=== PATIENT | male | born 1955 | race Caucasian/White ===

== ENCOUNTER 2018-04-13 13:30 | Inpatient (IN) ==
--- NOTE | 2018-04-13 14:28 | Emergency Department Note ---
Disposition Clinical Impression: Upper GI bleed Disposition: Admitted As Inpatient Condition: Good Referrals: Cameron Sparrow MD [Primary Care Provider] - Forms: ED Satisfaction Letter, Work/School Release Time of Disposition: 16:12 General Adult HPI - General Chief complaint: ED Abdominal Pain Stated complaint: ABD Pain Time Seen by Provider: 04/13/18 13:45 Source: patient, family Limitations: no limitations - History of Present Illness HPI Narrative: This is a 62-year-old male who comes to the emergency department from his family doctor's office with concern for GI bleed. In addition, he has abdominal pain. He states that he has had black stools for about the last 8 weeks. He has epigastric pain that has gradually gotten worse over the last 8-10 weeks. He has been taking apixaban for atrial fibrillation for approximately 2 years. Pain Scale: 3 - Related Data Home Medications Medication Instructions Recorded Confirmed ALPRAZolam [Xanax 1 MG Tablet] 1 mg PO BID 08/04/15 08/04/15 Atorvastatin [Lipitor] 40 mg PO HS 08/04/15 08/04/15 Clopidogrel [Plavix] 75 mg PO DAILY 08/04/15 08/04/15 Dicyclomine [Bentyl] 20 mg PO QID 08/04/15 08/04/15 Esomeprazole Magnesium [Nexium] 40 mg PO DAILY 08/04/15 08/04/15 FLUoxetine HCl [Prozac] 20 mg PO DAILY 08/04/15 08/04/15 Furosemide [Lasix] 40 mg PO BID 08/04/15 08/04/15 Glimepiride [Amaryl] 4 mg PO BID 08/04/15 08/04/15 Insulin Degludec [Tresiba 30 unit SQ DAILY 08/04/15 08/04/15 Flextouch U-100] Lisinopril [Zestril] 2.5 mg PO DAILY 08/04/15 08/04/15 Metoprolol [Lopressor] 100 mg PO BID 08/04/15 08/04/15 Rivaroxaban [Xarelto] 20 mg PO DAILY 08/04/15 08/04/15 dilTIAZem HCl [Cardizem] 60 mg PO TID 08/04/15 08/04/15 metFORMIN [Glucophage] 500 mg PO BID 08/04/15 08/04/15 Allergies Allergy/AdvReac Type Severity Reaction Status Date / Time promethazine [From Phenergan] Allergy Itching Verified 08/04/15 15:10 All systems ED: reviewed and negative except as stated. Gastrointestinal: Reports: abdominal pain, melena Past Medical History - Past Medical History Medical history: Reports: asthma, atrial fibrillation, cirrhosis, CHF, COPD, coronary artery disease, CVA, diabetes, hyperlipidemia, hypertension, liver disease, myocardial infarction, renal disease, sudden cardiac , valvular heart disease Surgical history: Reports: carotid endarterectomy, cholecystectomy, coronary bypass (CABG) Psychiatric history: Reports: no psych history - Social History Smoking Status: Former smoker Smokeless Tobacco Status: No Alcohol use: Reports: none Drug use: Reports: none Physical Exam - General Limitations: no limitations General appearance: alert, in distress (In minimal distress), obese - Head Head exam: atraumatic, normocephalic, normal inspection - Eye Eye exam: Present: normal appearance, PERRL, EOMI. Absent: scleral icterus - Chest Chest inspection: Present: normal inspection, symmetric chest wall rise - Respiratory Respiratory exam: Present: normal lung sounds bilaterally - Cardiovascular Cardiovascular exam: Present: regular rate, irregular rhythm, systolic murmur - Abdominal Exam Abdominal exam: Present: soft, tenderness Abdominal tenderness: Present: RLQ, epigastrium (And periumbilical) - Rectal Exam Manager Material present during exam: Yes Rectal exam: Present: normal inspection, normal rectal tone, heme (+) stool, black stool. Absent: hemorrhoids, tenderness - Extremities Exam Extremities exam: Present: normal inspection, pedal edema (There is 2+ bilateral pedal edema to the mid calves) - Neurological Exam Neurological exam: Present: alert, oriented X3 - Psychiatric Psychiatric exam: Present: normal affect, normal mood - Skin Skin exam: Present: warm, dry, intact, normal color Course Course Narrative: This is a 62-year-old male with evaluation concerning for melena, likely secondary to anticoagulation with Apixaban Vital Signs Temperature 97.9 F 04/13/18 13:32 Pulse Rate 64 04/13/18 13:32 Respiratory Rate 22 04/13/18 13:32 Blood Pressure 113/65 04/13/18 13:32 O2 Sat by Pulse Oximetry 99 04/13/18 13:32 Temperature 97.9 F 04/13/18 14:13 Pulse Rate 63 04/13/18 16:08 Respiratory Rate 14 04/13/18 16:08 Blood Pressure 113/59 04/13/18 16:08 O2 Sat by Pulse Oximetry 99 04/13/18 16:08 Oxygen Delivery Oxygen Delivery Room Air Medical Decision Making - MDM Narrative Medical decision making narrative: This is a 62-year-old male with what appears to be upper GI bleeding likely secondary to anticoagulation. I discussed his case with the on-call hospitalist, Who accepted him for admission - Lab Data Lab results reviewed: Yes I reviewed the patient's lab results. Lab results narrative: CBC shows anemia at 8.7 and 26.5 BMP shows hypokalemia at 3.2 and BUN elevated at 81 with creatinine of 2.44 Hemoccult was positive Result diagrams: 04/13/18 14:00 04/13/18 14:00 Lab Results 04/13/18 04/13/18 04/13/18 Range/Units 14:00 14:00 14:00 WBC 7.8 (4.3-11.1) K/mcL RBC 2.66 L (4.19-5.50) M/mcL Hgb 8.7 L (12.9-16.9) g/dL Hct 26.5 L (37.5-50.1) % MCV 99.6 (83.0-100.0) fL MCH 32.7 (28.0-33.3) pg MCHC 32.8 (31.6-35.5) g/dL RDW 15.9 H (11.5-14.5) % Plt Count 148 (140-400) K/mcL MPV 12.2 (9.4-12.4) fL Immature Gran % 0.8 (0-4) % Seg Neutrophils % 78.4 % Lymphocytes % 7.3 % Monocytes % 9.5 % Eosinophils % 3.5 % Basophils % 0.5 % Neutrophils # 6.1 (1.6-8.9) K/mcL Lymphocytes # 0.6 (0.6-4.6) K/mcL Monocytes # 0.7 (0.0-1.3) K/mcL Eosinophils # 0.3 (0.0-0.6) K/mcL Basophils # 0.0 (0.0-0.2) K/mcL Sodium 138 (136-145) mEq/L Potassium 3.2 L (3.5-5.1) mEq/L Chloride 97 L (98-107) mEq/L Carbon Dioxide 31 H (23-29) mEq/L BUN 81 H (8-23) mg/dL Creatinine 2.44 H (0.70-1.30) mg/dL Est GFR ( Amer) 33 L (> 60) Est GFR (Non-Af Amer) 27 L (> 60) BUN/Creatinine Ratio 33 H (6-26) Glucose 103 (70-105) mg/dL Calculated Osmolality 311 H (280-300) Calcium 8.3 L (8.6-10.3) mg/dL Stool Occult Bld Scrn (Negative) Blood Type A POSITIVE Antibody Screen NEGATIVE 04/13/18 Range/Units 15:20 WBC (4.3-11.1) K/mcL RBC (4.19-5.50) M/mcL Hgb (12.9-16.9) g/dL Hct (37.5-50.1) % MCV (83.0-100.0) fL MCH (28.0-33.3) pg MCHC (31.6-35.5) g/dL RDW (11.5-14.5) % Plt Count (140-400) K/mcL MPV (9.4-12.4) fL Immature Gran % (0-4) % Seg Neutrophils % % Lymphocytes % % Monocytes % % Eosinophils % % Basophils % % Neutrophils # (1.6-8.9) K/mcL Lymphocytes # (0.6-4.6) K/mcL Monocytes # (0.0-1.3) K/mcL Eosinophils # (0.0-0.6) K/mcL Basophils # (0.0-0.2) K/mcL Sodium (136-145) mEq/L Potassium (3.5-5.1) mEq/L Chloride (98-107) mEq/L Carbon Dioxide (23-29) mEq/L BUN (8-23) mg/dL Creatinine (0.70-1.30) mg/dL Est GFR ( Amer) (> 60) Est GFR (Non-Af Amer) (> 60) BUN/Creatinine Ratio (6-26) Glucose (70-105) mg/dL Calculated Osmolality (280-300) Calcium (8.6-10.3) mg/dL Stool Occult Bld Scrn Positive A (Negative) Blood Type Antibody Screen - Radiology Data Radiology results reviewed: Yes I reviewed the patient's radiology results. CT/pelvis showed no acute process Critical Care Time Critical Care Time: No
[2018-04-13 14:58] LABS: Basophils % 0.5 %; Eosinophils # 0.3 K/mcL (0.0-0.6); Eosinophils % 3.5 %; Hematocrit 26.5 % (37.5-50.1); Hemoglobin 8.7 g/dL (12.9-16.9); Immature Granulocytes % 0.8 % (0-4); Lymphocytes # 0.6 K/mcL (0.6-4.6); Lymphocytes % 7.3 %; Mean Corpuscular HGB Conc 32.8 g/dL (31.6-35.5); Mean Corpuscular Hemoglobin 32.7 pg (28.0-33.3); Mean Corpuscular Volume 99.6 fL (83.0-100.0); Mean Platelet Volume 12.2 fL (9.4-12.4); Monocytes # 0.7 K/mcL (0.0-1.3); Monocytes % 9.5 %; Neutrophils # 6.1 K/mcL (1.6-8.9); Platelet Count 148 K/mcL (140-400); Red Blood Count 2.66 M/mcL (4.19-5.50); Red Cell Distribution Width 15.9 % (11.5-14.5); Segmented Neutrophils % 78.4 %
[2018-04-13 15:19] LABS: Calcium 8.3 mg/dL (8.6-10.3); Potassium 3.2 mEq/L (3.5-5.1)
[2018-04-13] MEDS ORDERED: Ondansetron 4 MG/2 ML VIAL IVP PRN (18:11)
[2018-04-13] MEDS ORDERED: Naloxone 0.4 MG/ML INJ IVP PRN (18:11)
[2018-04-13] MEDS ORDERED: OXYCODONE Oral CONC 10 MG/0.5 ML ORAL.SYG SL PRN (18:11)
--- NOTE | 2018-04-13 18:30 | Internal Med History&Physical ---
Date of Encounter: 04/13/18 Time of Encounter: 18:22 Internal Medicine - H&P: HPI History of present illness: Mr. Bell is a 60 year old male with past medical history of severe mitral regurgitation, liver cirrhosis, CHF, CVA, COPD, CAD, IDDM 2, hypertension, MA status post CABG and stent placement 6, atrial fibrillation/ atrial flutter on Xarelto. He presented to ED per recommendation of his doctor's office. Patient has been having 8 weeks of dark coal-looking stools, but now having epigastric abdominal pain that is progressively worsening. He was told by primary care that in office his hemoglobin was 9.0. Today in ED, hemoglobin was 8.7 and BP and HR are within normal limits. He denies chest pain, shortness of breath (above his baseline), N/V. Past Med Surg Social Fam HX - Past Medical History Medical history: asthma, atrial fibrillation, cirrhosis, CHF, COPD, coronary artery disease, CVA, diabetes, hyperlipidemia, hypertension, liver disease, myocardial infarction, renal disease, sudden cardiac , valvular heart disease Additional medical history: ANEMIA Psychiatric history: no psych history - Past Surgical History Surgical History: carotid endarterectomy, cholecystectomy, coronary bypass (CABG) - Social History Smoking Status: Former smoker Smokeless Tobacco Status: No Alcohol use: none Drug use: none - Family History Mother Living Status: Father Living Status: Internal Medicine - H&P: Meds ALPRAZolam [Xanax 1 MG Tablet] 1 mg PO BID 08/04/15 [History] Atorvastatin [Lipitor] 40 mg PO HS 08/04/15 [History] Clopidogrel [Plavix] 75 mg PO DAILY 08/04/15 [History] Dicyclomine [Bentyl] 20 mg PO QID 08/04/15 [History] Esomeprazole Magnesium [Nexium] 40 mg PO DAILY 08/04/15 [History] FLUoxetine HCl [Prozac] 20 mg PO DAILY 08/04/15 [History] Furosemide [Lasix] 40 mg PO BID 08/04/15 [History] Glimepiride [Amaryl] 4 mg PO BID 08/04/15 [History] Insulin Degludec [Tresiba Flextouch U-100] 30 unit SQ DAILY 08/04/15 [History] Lisinopril [Zestril] 2.5 mg PO DAILY 08/04/15 [History] Metoprolol [Lopressor] 100 mg PO BID 08/04/15 [History] Rivaroxaban [Xarelto] 20 mg PO DAILY 08/04/15 [History] dilTIAZem HCl [Cardizem] 60 mg PO TID 08/04/15 [History] metFORMIN [Glucophage] 500 mg PO BID 08/04/15 [History] Allergy/AdvReac Type Severity Reaction Status Date / Time promethazine [From Phenergan] Allergy Itching Verified 08/04/15 15:10 All Systems PM: A 10-system review of systems was performed and is negative for pertinent findings except as documented above in the HPI. - Constitutional Vitals: Temp Pulse Resp BP Pulse Ox 97.9 F 63 14 113/59 99 04/13/18 14:13 04/13/18 16:08 04/13/18 16:08 04/13/18 16:08 04/13/18 16:08 General appearance: Present: A&O X 3 Exam: . - Head Head exam: Present: atraumatic, normocephalic - Eye Eye exam: Present: PERRL, conjuntiva pink, sclera anicteric Pupils: Present: PERRL - Neck Neck exam general surgery: Present: supple, trachea midline. Absent: lymphadenopathy - Respiratory Respiratory exam: Present: CTAB. Absent: accessory muscle use, rales, rhonchi, wheezes - Cardiovascular Cardiovascular exam: Present: RRR, +S1, +S2. Absent: diastolic murmur, gallop, rubs, systolic murmur - GI/Abdominal GI/Abdominal exam: Present: normal bowel sounds, soft, tenderness, no peritoneal signs. Absent: distended - Extremities Exam Extremities exam: Present: pedal edema (Patient states this is baseline (1+ bipedal)), warm, radial pulses palpable and symmetrical. Absent: calf tenderness, cyanotic - Neurological Exam Neurological exam: Present: CN II-XII intact, oriented X3, no focal deficits. Absent: pronater drift, facial droop, speech deficit - Skin Skin exam: Present: dry, intact Internal Med - H&P Results - Labs CBC & Chem 7: 04/13/18 18:46 04/13/18 14:00 Labs: Short CBC 04/13/18 Range/Units 14:00 WBC 7.8 (4.3-11.1) K/mcL Hgb 8.7 L (12.9-16.9) g/dL Hct 26.5 L (37.5-50.1) % Plt Count 148 (140-400) K/mcL Neutrophils # 6.1 (1.6-8.9) K/mcL BMP 04/13/18 14:00 Sodium 138 Potassium 3.2 L Chloride 97 L Carbon Dioxide 31 H BUN 81 H Creatinine 2.44 H Glucose 103 Calcium 8.3 L - Impressions ITS Impressions Abdomen/Pelvis CT 04/13/18 13:57 IMPRESSION: No acute process within the abdomen or pelvis. Normal appendix. Cirrhosis with associated splenomegaly and small amount of ascites. Cholecystectomy. D/ / 04/13/2018 15:24:42 Ray Maciel MD / rowan Interpreting Provider: Ray Maciel MD - Assessment and plan (1) Upper GI bleed Current Visit: Yes Status: Acute Assessment and plan: Patient had 8 week history of dark black stools and hemoglobin of 9.0 in doctor office yesterday and today in the ED hemoglobin was 8.7. She had EGD in November 2017 showing grade I varicies and mild portal hypertensive gastropathy. Currently patient has symptoms that are chronic, duration of weeks. Consult Gastroenterology, possible EGD Start Protonix IV BID Close monitoring of vitals. Currently hemodynamically stable. Monitor H&H, recheck in 6 horus from first draw. Hold Xarelto Hold Plavix. Clear liquid idet now and NPO at midnight Tranfsuse if H&H < 8.0 in this cardiac patient. (2) Liver cirrhosis secondary to [place] Current Visit: Yes Status: Acute (3) Hypertension Current Visit: Yes Status: Acute Assessment and plan: Resume home medications once medication reconciliation is complete. Qualifiers: Hypertension type: essential hypertension Qualified Code(s): I10 - Essential (primary) hypertension (4) Chronic kidney disease Current Visit: Yes Status: Acute Assessment and plan: Renal function at baseline. Qualifiers: Chronic kidney disease stage: stage 3 (moderate) Qualified Code(s): N18.3 - Chronic kidney disease, stage 3 (moderate) (5) CAD (coronary artery disease) Current Visit: No Status: Chronic Assessment and plan: Resume home medications once medication reconciliation is complete. But hold Plavix Qualifiers: Coronary Disease-Associated Artery/Lesion type: bypass graft [place] vs. transplanted heart: [place] heart Associated angina: without angina Qualified Code(s): I25.810 - Atherosclerosis of coronary artery bypass graft(s) without angina pectoris (6) COPD (chronic obstructive pulmonary disease) Current Visit: No Status: Chronic Assessment and plan: Not in acute exacerbation. Qualifiers: COPD type: unspecified COPD Qualified Code(s): J44.9 - Chronic obstructive pulmonary disease, unspecified (7) Type 2 diabetes mellitus Current Visit: No Status: Chronic Assessment and plan: Sliding scale insulin Diabetic diet when able. Qualifiers: Diabetes mellitus supervisor intermediates insulin use: with supervisor intermediates use Diabetes mellitus complication status: with hyperglycemia Qualified Code(s): E11.65 - Type 2 diabetes mellitus with hyperglycemia; Z79.4 - supervisor intermediates (current) use of insulin (8) Atrial fib/flutter, transient Current Visit: Yes Status: Acute Assessment and plan: Takes Cardizem and metoprolol at home but medications are not verified. Hold Xarelto (9) DVT prophylaxis Current Visit: No Status: Acute Assessment and plan: EPCD - Time Spent With Patient Total time spent is greater than 50% in coordination of care (as documented) at patient's floor/unit and/or counseling patient:
[2018-04-13 19:02] LABS: Hematocrit 24.3 % (37.5-50.1); Hemoglobin 8.2 g/dL (12.9-16.9)
[2018-04-13] MEDS ORDERED: Ipratropium/Albuterol Neb 3 ML IH PRN (19:11)
[2018-04-13] MEDS ORDERED: *HR* Metoprolol 5 MG/5 ML VIAL IVP PRN (19:11)
[2018-04-13] MEDS: Pantoprazole 40 MG VIAL IVP SCH (20:47)
[2018-04-13] MEDS: Insulin LISPRO 300 UNITS/3 ML VIAL SQ SCH (20:50)
[2018-04-14] MEDS ORDERED: *HR* Dextrose 50 % in Water (Syg) 50 ML SYRINGE IVP PRN (00:04)
[2018-04-14] MEDS ORDERED: D5% in Water 1,000 ML IVC PRN (00:04)
[2018-04-14] MEDS ORDERED: Dextrose Gel 15 GM/37.5 ML TUBE PO PRN ×2 (00:04)
[2018-04-14 01:37] LABS: Hematocrit 25.5 % (37.5-50.1); Hemoglobin 8.4 g/dL (12.9-16.9)
[2018-04-14 01:43] LABS: Basophils # 0.1 K/mcL (0.0-0.2); Basophils % 0.7 %; Eosinophils # 0.3 K/mcL (0.0-0.6); Eosinophils % 3.8 %; Hematocrit 25.4 % (37.5-50.1); Hemoglobin 8.4 g/dL (12.9-16.9); Immature Granulocytes % 0.4 % (0-4); Lymphocytes # 0.4 K/mcL (0.6-4.6); Lymphocytes % 6.4 %; Mean Corpuscular HGB Conc 33.1 g/dL (31.6-35.5); Mean Corpuscular Hemoglobin 32.7 pg (28.0-33.3); Mean Corpuscular Volume 98.8 fL (83.0-100.0); Mean Platelet Volume 12.1 fL (9.4-12.4); Monocytes # 0.7 K/mcL (0.0-1.3); Monocytes % 10.3 %; Neutrophils # 5.4 K/mcL (1.6-8.9); Platelet Count 141 K/mcL (140-400); Red Blood Count 2.57 M/mcL (4.19-5.50); Red Cell Distribution Width 15.9 % (11.5-14.5); Segmented Neutrophils % 78.4 %
[2018-04-14 01:58] LABS: Calcium 8.2 mg/dL (8.6-10.3); Potassium 3.5 mEq/L (3.5-5.1)
[2018-04-14] MEDS: Pantoprazole 40 MG VIAL IVP SCH ×2 (05:52→19:02)
[2018-04-14] MEDS: ALPRAZolam 1 MG TABLET PO SCH ×2 (06:22→20:30)
[2018-04-14] MEDS ORDERED: Furosemide 40 MG TABLET PO SCH (09:00)
[2018-04-14] MEDS: Cyanocobalamin (B-12) 1,000 MCG TABLET PO SCH (09:19)
[2018-04-14] MEDS: FLUoxetine 20 MG CAPSULE PO SCH (09:19)
[2018-04-14] MEDS: Insulin LISPRO 300 UNITS/3 ML VIAL SQ SCH ×4 (09:22→20:22)
[2018-04-14 10:49] LABS: INR 1.8; Prothrombin Time 20.5 Seconds (9.4-12.1)
[2018-04-14 11:00] LABS: Albumin 2.7 g/dL (3.5-5.7); Albumin/Globulin Ratio 1.1 (1.1-2.2); Bilirubin,Direct 0.6 mg/dL (0.0-0.2); Bilirubin,Indirect 0.9 mg/dL (0.0-1.2); Bilirubin,Total 1.5 mg/dL (0.3-1.0); Globulin 2.5 g/dL (2.4-3.5); Total Protein 5.2 g/dL (6.4-8.9)
--- NOTE | 2018-04-14 16:02 | Internal Med Progress Note ---
Hospitalist Progress Note - Encounter Date of Encounter: 04/14/18 Time of Encounter: 17:18 - Subjective Interval History: No acute events overnight. Patient still having complaints of abdominal pain but not as severe as a few days ago. Denies chest pain, SOB, n/v, dizziness. - Exam Vitals: Temp Pulse Resp BP Pulse Ox 99.2 F 68 17 94/52 96 04/14/18 11:15 04/14/18 11:15 04/14/18 11:15 04/14/18 11:15 04/14/18 11:15 Exam: Gen: Obese, NAD, AAO x3 CVS: RRR Lungs; CTAB Abd: soft, mild TTP epigastric region, normal bowel sounds Ext: 2+ bipedal pitting edema. . - Assessment and Plan (1) Upper GI bleed Current Visit: Yes Status: Acute Assessment and Plan: Patient had 8 week history of dark black stools and hemoglobin of 9.0 in doctor office yesterday and today in the ED hemoglobin was 8.7. She had EGD in November 2017 showing grade I varicies and mild portal hypertensive gastropathy. Currently patient has symptoms that are chronic, duration of weeks. GI consulted, recommendations appreciated Continue Protonix IV BID Close monitoring of vitals. Currently hemodynamically stable. Monitor H&H, recheck in 6 hours from first draw. Hold Xarelto Hold Plavix. NPO for now until GI eval Tranfsuse if H&H < 8.0 in this cardiac patient. (2) Liver cirrhosis secondary to [place] Current Visit: Yes Status: Acute (3) Hypertension Current Visit: Yes Status: Acute Assessment and Plan: Takes metoprolol at home. However, BP now lower normal limits so will hold. (4) Chronic kidney disease Current Visit: Yes Status: Acute Assessment and Plan: Renal function at baseline. (5) CAD (coronary artery disease) Current Visit: No Status: Chronic Assessment and Plan: Resume home medications But hold Plavix (6) COPD (chronic obstructive pulmonary disease) Current Visit: No Status: Chronic Assessment and Plan: Not in acute exacerbation. (7) Type 2 diabetes mellitus Current Visit: No Status: Chronic Assessment and Plan: Sliding scale insulin Diabetic diet when able. (8) Atrial fib/flutter, transient Current Visit: Yes Status: Acute Assessment and Plan: Takes Cardizem and metoprolol at home but currently BP is low so hold metoprolol and Hold Xarelto due to GIB (9) DVT prophylaxis Current Visit: No Status: Acute Assessment and Plan: EPCD - Time Spent with Patient Total time spent is greater than 50% in coordination of care (as documented) at patient's floor/unit and/or counseling patient: Internal Medicine: Result - Labs CBC & Chem 7: 04/14/18 00:12 04/14/18 00:12 Labs: Short CBC 04/13/18 04/14/18 04/14/18 Range/Units 18:46 00:12 00:12 WBC 6.9 (4.3-11.1) K/mcL Hgb 8.2 L 8.4 L 8.4 L (12.9-16.9) g/dL Hct 24.3 L 25.5 L 25.4 L (37.5-50.1) % Plt Count 141 (140-400) K/mcL Neutrophils # 5.4 (1.6-8.9) K/mcL BMP 04/14/18 00:12 Sodium 137 Potassium 3.5 Chloride 97 L Carbon Dioxide 31 H BUN 78 H Creatinine 2.34 H Glucose 80 Calcium 8.2 L Liver Function 04/14/18 Range/Units 10:00 Total Bilirubin 1.5 H (0.3-1.0) mg/dL Direct Bilirubin 0.6 H (0.0-0.2) mg/dL AST 142 H (13-39) Units/L ALT 91 H (7-52) Units/L Alkaline Phosphatase 106 H (34-104) Units/L Albumin 2.7 L (3.5-5.7) g/dL - ABG Interpretation ABG results: PT/INR, D-dimer PT 20.5 Seconds (9.4-12.1) H 04/14/18 10:00 Consult Discharge Plan - Plan Referrals: Cameron Sparrow MD [Primary Care Provider] - (3) Hypertension Qualifiers: Hypertension type: essential hypertension Qualified Code(s): I10 - Essential (primary) hypertension (4) Chronic kidney disease Qualifiers: Chronic kidney disease stage: stage 3 (moderate) Qualified Code(s): N18.3 - Chronic kidney disease, stage 3 (moderate) (5) CAD (coronary artery disease) Qualifiers: Coronary Disease-Associated Artery/Lesion type: bypass graft [place] vs. transplanted heart: [place] heart Associated angina: without angina Qualified Code(s): I25.810 - Atherosclerosis of coronary artery bypass graft(s) without angina pectoris (6) COPD (chronic obstructive pulmonary disease) Qualifiers: COPD type: unspecified COPD Qualified Code(s): J44.9 - Chronic obstructive pulmonary disease, unspecified (7) Type 2 diabetes mellitus Qualifiers: Diabetes mellitus nursing home insulin use: with nursing home use Diabetes mellitus complication status: with hyperglycemia Qualified Code(s): E11.65 - Type 2 diabetes mellitus with hyperglycemia; Z79.4 - jail (current) use of insulin
--- NOTE | 2018-04-14 16:52 | Gastroenterology Consult Note ---
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 Continue Lasix. Consider Aldactone. AFP 1 on 08/05/2015. RUQ US 09/22/2017 with cirrhosis, no lesions. Check AFP and liver US to rule out HCC. Complete EGD for variceal screening. Lifestyle Changes: 1. Total abstinence from alcohol including social drinking. 2. No smoking. 3. Gradual loss of weight. 4. Drink at least 3 cups of coffee due to its antioxidant effects in the liver, it reduces risk of HCC and advance fibrosis. 5. If needed, use less than 2 g/day of Tylenol (in divided doses). 6. Vaccination for Hep A, B, Pneumococcus if not already received and yearly influenza vaccination by PCP. 7. Avoid NSAIDS as can cause kidney damage. 8. Avoid benzodiazepines and other sedatives such as anti-histamines, narcotics etc. as can cause encephalopathy or confusion. 9. Take a late carbohydrate meal supplement as it reduces glucose production from protein breakdown and thus improves nutrition. 10. In cirrhosis, statins are safe to use and also improve portal hypertension and decrease risk of HCC. 11. Screening: Hepatocellular cancer screening: US of liver and AFP every 6 months (2) Upper GI bleed Current Visit: Yes Status: Acute Assessment and plan: Complete EGD today to r/o esophagitis, gastritis, duodenitis, PUD, MW tear, or AVM. (3) Anemia Current Visit: Yes Status: Acute Assessment and plan: On admission, Hgb 8.7 and this AM Hgb 8.4. Continue to monitor CBC and transfuse PRBC as needed. Plan for EGD. Qualifiers: Anemia type: unspecified type Qualified Code(s): D64.9 - Anemia, unspecified - Time Spent With Patient Total time spent is greater than 50% in coordination of care (as documented) at patient's floor/unit and/or counseling patient: GI History of Present Illness - Data of Consult Patient: new to practice Consult date: 04/14/18 Requesting Physician: Robyn Sauceda MD - Consult Narrative Reason for consult: Upper GI bleed History of present illness: Mr. Bell is a 62 year old male with PMHx of Afib, cirrhosis, CHF, COPD, CAD, CVA, DM, HLD, HTN, MD s/p CABG and stent placement x 6. He presented to the ED with complaints of 8 weeks of dark coal-looking stools and epigastric pain. On admission, Hgb 8.7 and this AM Hgb 8.4. Fecal occult blood test was positive. We were consulted to evalute for upper GI bleed. Procedures: None NSAIDs: None Anticoagulation: Plavix, Eliquis Past Med Surg Social Fam HX - Past Medical History Medical history: asthma, atrial fibrillation, cirrhosis, CHF, COPD, coronary artery disease, CVA, diabetes, hyperlipidemia, hypertension, liver disease, myocardial infarction, renal disease, sudden cardiac , valvular heart disease Additional medical history: ANEMIA Psychiatric history: anxiety - Past Surgical History Surgical History: carotid endarterectomy, cholecystectomy, coronary bypass (CABG) - Social History Smoking Status: Former smoker Smokeless Tobacco Status: No Alcohol use: none Drug use: none - Family History Mother Living Status: Father Living Status: - Gastrointestinal Gastrointestinal: Present: as per HPI - Constitutional Constitutional: as per HPI - EENT Eyes: as per HPI Ears: Present: as per HPI Nose, mouth and throat: Present: as per HPI - Cardiovascular Cardiovascular ROS: Present: as per HPI - Respiratory Respiratory IM: Present: as per HPI - Genitourinary Genitourinary: Absent: change in color, Urinary frequency - Neurological ROS Neurological GI: Present: as per HPI - Hematologic/Lymphatic Hematologic/Lymphatic pediatric: Present: as per HPI - Musculoskeletal Musculoskeletal ROS GI: Present: as per HPI - Integumentary Integumentary GI: Present: as per HPI - Psychiatric ROS Psychiatric GI: Present: as per HPI - Endocrine Endocrine IM: Present: as per HPI - Constitutional Vitals: Temp Pulse Resp BP Pulse Ox 99.2 F 68 17 94/52 96 04/14/18 11:15 04/14/18 11:15 04/14/18 11:15 04/14/18 11:15 04/14/18 11:15 General appearance: Present: cooperative, A&O X 3, no acute distress, answers questions appropriately - Head Head exam: Present: atraumatic, normocephalic - Eye Eye exam: Present: normal appearance, sclera anicteric - ENT ENT exam: Present: mucous membranes dry - Neck Neck exam general surgery: Present: normal inspection, trachea midline - Respiratory Respiratory exam: Present: decreased breath sounds, CTAB. Absent: rales, rhonchi - Cardiovascular Cardiovascular exam: Present: RRR, +S1, +S2 - GI/Abdominal GI/Abdominal exam: Present: soft, tenderness (epigastric), no peritoneal signs. Absent: distended, firm, guarding - Rectal Rectal exam: Present: deferred - Extremities Exam Extremities exam: Present: warm - Neurological Exam Neurological exam: Present: no focal deficits - Psychiatric Psychiatric exam: Present: normal affect, normal mood - Skin Skin exam: Present: dry, intact, normal color, warm Results - Labs CBC & Chem 7: 04/14/18 00:12 04/14/18 00:12 Labs: Last Result Calcium 8.2 mg/dL (8.6-10.3) L 04/14/18 00:12 Entire Visit Hgb 8.4 g/dL (12.9-16.9) L 04/14/18 00:12 Hct 25.4 % (37.5-50.1) L 04/14/18 00:12 PT 20.5 Seconds (9.4-12.1) H 04/14/18 10:00 Total Bilirubin 1.5 mg/dL (0.3-1.0) H 04/14/18 10:00 AST 142 Units/L (13-39) H 04/14/18 10:00 ALT 91 Units/L (7-52) H 04/14/18 10:00 - ABG ABG results: PT/INR, D-dimer PT 20.5 Seconds (9.4-12.1) H 04/14/18 10:00 - Impressions Impressions Liver Ultrasound 04/14/18 15:00 IMPRESSION: 1. Hepatic morphologic features typical of cirrhosis with no discrete mass lesion evident. 2. Mild hepatomegaly. 3. Small volume ascites. D/ / Brenton Hernández / Brenton Hernández Interpreting Provider: Brenton Hernández Consult Discharge Plan - Plan Referrals: Cameron Sparrow MD [Primary Care Provider] - <Sheela Son - Last Filed: 04/14/18 20:54> Date of Encounter: 04/14/18 Time of Encounter: 15:00 - Time Spent With Patient Total time spent is greater than 50% in coordination of care (as documented) at patient's floor/unit and/or counseling patient: GI History of Present Illness - Data of Consult Requesting Physician: Robyn Sauceda MD - Consult Narrative History of present illness: Mr. Bell is a 62 year old male - Constitutional Vitals: Temp Pulse Resp BP Pulse Ox 98.5 F 73 14 110/67 95 04/14/18 19:52 04/14/18 19:52 04/14/18 19:52 04/14/18 19:52 04/14/18 19:52 Results - Labs CBC & Chem 7: 04/14/18 00:12 04/14/18 00:12 Labs: Last Result Calcium 8.2 mg/dL (8.6-10.3) L 04/14/18 00:12 Entire Visit Hgb 8.4 g/dL (12.9-16.9) L 04/14/18 00:12 Hct 25.4 % (37.5-50.1) L 04/14/18 00:12 PT 20.5 Seconds (9.4-12.1) H 04/14/18 10:00 Total Bilirubin 1.5 mg/dL (0.3-1.0) H 04/14/18 10:00 AST 142 Units/L (13-39) H 04/14/18 10:00 ALT 91 Units/L (7-52) H 04/14/18 10:00 - ABG ABG results: PT/INR, D-dimer PT 20.5 Seconds (9.4-12.1) H 04/14/18 10:00 - Impressions Impressions Liver Ultrasound 04/14/18 15:00 IMPRESSION: 1. Hepatic morphologic features typical of cirrhosis with no discrete mass lesion evident. 2. Mild hepatomegaly. 3. Small volume ascites. D/ / Brenton Hernández / Brenton Hernández Interpreting Provider: Brenton Hernández - Attending Attestation I have personally performed a face to face evaluation on this patient. I have reviewed and agree with the care plan. History and Exam by me shows: Pt seen. Pt with blcak stool. O/E AAO, abd non tander, rectal black stool. A: Pt cirrhosis now with melena/black stool. Rec;EGD , follow H/H
[2018-04-14] MEDS ORDERED: *HR* Midazolam HCl 5 MG/5 ML VIAL IVP ONE ×2 (17:50→18:13)
[2018-04-14] MEDS ORDERED: *HR* FentaNYL (PF) 100 MCG/2 ML VIAL ONE (17:50)
[2018-04-14] MEDS: 0.9 % Sodium Chloride 1,000 ML IVC SCH (17:52)
[2018-04-14] MEDS ORDERED: *HR* FentaNYL (PF) 100 MCG/2 ML VIAL IVP ONE (18:13)
[2018-04-14] MEDS ORDERED: Tetracaine/Benzocaine/Butamben 1 SPRAY AEROSOL MM ONE (18:13)
[2018-04-14] MEDS ORDERED: Simethicone 40 MG/0.6 ML MLS IR ONE (18:13)
--- NOTE | 2018-04-14 18:16 | Pre-Sedation Evaluation ---
Pre-sedation evaluation - Pre-sedation checklist Date of procedure: 04/14/18 Procedure: egd Recent Vitals: Last Vital Signs Temp 99.0 F 04/14/18 17:46 Pulse 80 04/14/18 18:08 Resp 18 04/14/18 18:08 BP 103/57 04/14/18 18:08 Pulse Ox 99 04/14/18 18:08 H&P (including ROS) documented in medical record: Yes Previous reaction to sedatives/anesthetics: No Dietary Status: NPO after Midnight Dentition: dentures removed ASA Classification *see protocol: CLASS III-Severe systemic disease Plan of Care: Pt appropriate candidate for procedure/moderate/conscious sedation, Risks/benefits of procedure/sedation discussed w/ patient/family
[2018-04-14] MEDS ORDERED: SODIUM CHLORIDE/NAHCO3/KCL/PEG 4,000 ML SOLN.RECON PO ONE (18:33)
[2018-04-14] MEDS: Sucralfate 1 GM TABLET PO SCH (20:30)
[2018-04-15] MEDS: Pantoprazole 40 MG VIAL IVP SCH ×2 (05:53→17:43)
[2018-04-15] MEDS: Insulin LISPRO 300 UNITS/3 ML VIAL SQ SCH ×4 (07:40→20:39)
[2018-04-15] MEDS: Sucralfate 1 GM TABLET PO SCH ×2 (07:47→20:39)
[2018-04-15] MEDS: FLUoxetine 20 MG CAPSULE PO SCH (07:47)
[2018-04-15] MEDS: Cyanocobalamin (B-12) 1,000 MCG TABLET PO SCH (07:47)
[2018-04-15] MEDS: ALPRAZolam 1 MG TABLET PO SCH ×2 (07:48→20:39)
--- NOTE | 2018-04-15 08:58 | Anesthesia Evaluation PreOp ---
Date of Encounter: 04/15/18 Time of Encounter: 08:56 - Past History Planned Operation: Colonoscopy Cardiac History: [place] (26 years go), CHF, HTN, Hyperlipidemia, Arrhythmia (AFib), Cardiac Surgery (CABGx1), Cardiac Stent (x6) Pulmonary History: Former smoker (quit 6 years ago), COPD (2L nasal canula oxygen at night), RANDALL Dx RIB SAWYER History: CVA (LUE weakness) Other Medical History: Hepatic (Cirrhosis), Renal (CRD Stage 3), GERD Anesthesia History: Past Anesthesia (CABG, L-CEA, GB) Alcohol Use: none Drug use: none Medications and Allergies RX: ALPRAZolam [Xanax 1 MG Tablet] 1 mg PO BID 08/04/15 [History] RX: Atorvastatin [Lipitor] 40 mg PO HS 08/04/15 [History] RX: Clopidogrel [Plavix] 75 mg PO DAILY 08/04/15 [History] RX: FLUoxetine HCl [Prozac] 20 mg PO DAILY 08/04/15 [History] RX: Furosemide [Lasix] 40 mg PO BID 08/04/15 [History] Apixaban [Eliquis] 5 mg PO BID 04/13/18 [History] Ergocalciferol (VITAMIN D2) [Vitamin D2] 50,000 unit PO FR 04/13/18 [History] Esomeprazole Magnesium [Nexium] 20 mg PO DAILY 04/13/18 [History] Ferrous Sulfate 325 mg PO BID 04/13/18 [History] Metoprolol Tartrate [Lopressor] 25 mg PO BID 04/13/18 [History] RX: Allopurinol [Zyloprim 100 MG] 100 mg PO BID 04/13/18 [History] RX: Cyanocobalamin (Vitamin B-12) [Vitamin B12] 1,000 mcg PO DAILY 04/13/18 [History] RX: Insulin Degludec [Tresiba Flextouch U-200] 25 unit SQ HS 04/13/18 [History] RX: Nitroglycerin [Nitrostat] 0.4 mg PO AD 04/13/18 [History] RX: Potassium Chloride 10 meq PO DAILY 04/13/18 [History] RX: Sucralfate [Carafate] 1 g PO BID 04/13/18 [History] RX: Tamsulosin [Flomax] 0.4 mg PO DAILY 04/13/18 [History] RX: metOLazone [Zaroxolyn] 2.5 mg PO MOWEFR 04/13/18 [History] Allergy/AdvReac Type Severity Reaction Status Date / Time promethazine [From Phenergan] Allergy Itching Verified 04/13/18 21:34 - Meds/Allergy Pre-op Review Medications Reviewed: Yes Allergies Reviewed: Yes Beta Blockers on Current Med List: No (PRN basis) Anesthesia Results - Labs 04/14/18 00:12 04/14/18 00:12 Laboratory Tests 04/14/18 10:00 INR 1.8 - Imaging EKG: report reviewed (SINUS RHYTHM WITH SHORT PA INTERVAL RIGHT BUNDLE BRANCH BLOCK MODERATE T-WAVE ABNORMALITY, CONSIDER LATERAL ISCHEMIA) Anesthesia Exam O2 Sat Weight 112 kg O2 Sat by Pulse Oximetry 97 O2 Sat by Pulse Oximetry 96 O2 Sat by Pulse Oximetry 94 O2 Sat by Pulse Oximetry 95 O2 Sat by Pulse Oximetry 95 O2 Sat by Pulse Oximetry 97 O2 Sat by Pulse Oximetry 93 O2 Sat by Pulse Oximetry 95 O2 Sat by Pulse Oximetry 93 O2 Sat by Pulse Oximetry 93 O2 Sat by Pulse Oximetry 98 O2 Sat by Pulse Oximetry 96 O2 Sat by Pulse Oximetry 99 O2 Sat by Pulse Oximetry 98 O2 Sat by Pulse Oximetry 96 Vital Signs Temp Pulse Resp BP Pulse Ox 97.9 F 64 22 113/65 99 04/13/18 13:32 04/13/18 13:32 04/13/18 13:32 04/13/18 13:32 04/13/18 13:32 Vital Signs/O2 Sat, Most Current Temp Pulse Resp BP Pulse Ox 98.2 F 74 18 107/50 97 04/15/18 08:53 04/15/18 08:53 04/15/18 08:53 04/15/18 08:53 04/15/18 08:53 NPO (# of Hours): > 8 Hrs Pain Scale: 0 Pain Scale Used: Numeric (1 - 10) - HEENT Pupil (Motor): Pupils equal, EOMI Mallampati: III Teeth: Normal Oral Opening: Greater than 3 - RIB SAWYER LOC: Oriented RIB SAWYER Motor: Normal RUE, Normal LUE, Normal RLE, Normal LLE, Normal Face RIB SAWYER Sensory: Normal: RUE, LUE, RLE, LLE, Face - Cardiac Rhythm: Regular Murmur: None JVD: No Carotid Bruit: No - Pulmonary Breath Sounds: bilateral Clear Respiratory Effort: Symmetrical Anesthesia Assess/Plan ASA Score: 3 Anesthetic Plan: MAC Autologous Blood: Yes Monitoring Plan: Standard Monitors Recovery Plan: Other
[2018-04-15] MEDS ORDERED: *HR* Propofol 200 MG/20 ML VIAL IVP ONE ×2 (09:10→09:22)
[2018-04-15] MEDS ORDERED: Lidocaine -MPF 2% 2 ML VIAL ONE (09:10)
[2018-04-15 10:52] LABS: Calcium 7.9 mg/dL (8.6-10.3); Potassium 3.5 mEq/L (3.5-5.1)
[2018-04-15 11:21] LABS: Basophils % 0.4 %; Eosinophils # 0.3 K/mcL (0.0-0.6); Eosinophils % 3.1 %; Hematocrit 25.5 % (37.5-50.1); Hemoglobin 8.3 g/dL (12.9-16.9); Immature Granulocytes % 0.5 % (0-4); Lymphocytes # 0.5 K/mcL (0.6-4.6); Lymphocytes % 6.4 %; Mean Corpuscular HGB Conc 32.5 g/dL (31.6-35.5); Mean Corpuscular Hemoglobin 32.8 pg (28.0-33.3); Mean Corpuscular Volume 100.8 fL (83.0-100.0); Monocytes # 0.9 K/mcL (0.0-1.3); Monocytes % 10.3 %; Neutrophils # 6.6 K/mcL (1.6-8.9); Platelet Count 146 K/mcL (140-400); Red Blood Count 2.53 M/mcL (4.19-5.50); Red Cell Distribution Width 16.1 % (11.5-14.5); Segmented Neutrophils % 79.3 %
--- NOTE | 2018-04-15 13:16 | Internal Med Progress Note ---
<Sofia Porter - Last Filed: 04/15/18 15:02> Hospitalist Progress Note - Encounter Date of Encounter: 04/15/18 Time of Encounter: 15:02 - Subjective Interval History: Patient is laying in bed, appears in no acute distress, nontoxic. Patient states that overall he has symptoms have significantly improved. He states that his abdominal pain is currently rated 0-10. Denies any current nausea, vomiting, diarrhea. He denies any further melena stools since he had his bowel prep and EGD/colonoscopy yesterday. No fevers or chills overnight. - Exam Vitals: Temp Pulse Resp BP Pulse Ox 98.3 F 71 18 104/64 96 04/15/18 11:45 04/15/18 11:45 04/15/18 11:45 04/15/18 11:45 04/15/18 10:45 Exam: Gen: Obese, NAD, AAO x3 CVS: RRR Lungs; CTAB Abd: soft, no guarding or rebound, no abdominal tenderness, abdomen is obese Ext: 2+ bipedal pitting edema. . - Assessment and Plan (1) Upper GI bleed Current Visit: Yes Status: Acute Assessment and Plan: Patient had 8 week history of dark black stools and hemoglobin of 9.0 in doctor office yesterday and today in the ED hemoglobin was 8.7. She had EGD in November 2017 showing grade I varicies and mild portal hypertensive gastropathy. Currently patient has symptoms that are chronic, duration of weeks. GI performed EGD and colonoscopy. EGD showed prepyloric GAVE, with APC.Colonoscopy showed 3 mm, nonbleeding polyp in the ascending colon. Along with internal hemorrhoids. Recommendation is cardiac diet as well as a Endoscopy outpatient. Patient with noted history of thrombus in the heart, currently obtaining echocardiogram reports from as well as [facility] and [facility]. Most recent recent echocardiogram is noted to be in December 2017. We will obtain these records for further recommendations regarding anticoagulation. Plan Continue Protonix IV BID Close monitoring of vitals. Currently hemodynamically stable. Hold Xarelto Hold Plavix. Tranfsuse if H&H < 8.0 in this cardiac patient. (2) COPD (chronic obstructive pulmonary disease) Current Visit: No Status: Chronic Assessment and Plan: Not an acute exacerbation Plan Continue to monitor (3) Type 2 diabetes mellitus Current Visit: No Status: Chronic Assessment and Plan: Sliding scale insulin Diabetic diet when able. 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 As blood pressure is 106/58 this morning (7) Chronic kidney disease Current Visit: Yes Status: Acute Assessment and Plan: Continue to monitor Creatinine today of 2.34 (8) DVT prophylaxis Current Visit: No Status: Acute Assessment and Plan: Continue with compression stockings - Time Spent with Patient Total time spent is greater than 50% in coordination of care (as documented) at patient's floor/unit and/or counseling patient: Internal Medicine: Result - Labs CBC & Chem 7: 04/15/18 11:03 04/15/18 10:13 Labs: Short CBC 04/15/18 Range/Units 11:03 WBC 8.3 (4.3-11.1) K/mcL Hgb 8.3 L (12.9-16.9) g/dL Hct 25.5 L (37.5-50.1) % Plt Count 146 (140-400) K/mcL Neutrophils # 6.6 (1.6-8.9) K/mcL BMP 04/13/18 04/15/18 14:00 10:13 Sodium 138 137 Potassium 3.2 L 3.5 Chloride 97 L 101 Carbon Dioxide 31 H 26 BUN 81 H 72 H Creatinine 2.44 H 2.34 H Glucose 103 92 Calcium 8.3 L 7.9 L - ABG Interpretation ABG results: PT/INR, D-dimer PT 20.5 Seconds (9.4-12.1) H 04/14/18 10:00 - Impressions Impressions Liver Ultrasound 04/14/18 15:00 IMPRESSION: 1. Hepatic morphologic features typical of cirrhosis with no discrete mass lesion evident. 2. Mild hepatomegaly. 3. Small volume ascites. 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 Current Visit: Yes Status: Acute (3) Hypertension Current Visit: Yes Status: Acute (4) Chronic kidney disease Current Visit: Yes Status: Acute (5) CAD (coronary artery disease) Current Visit: No Status: Chronic (6) COPD (chronic obstructive pulmonary disease) Current Visit: No Status: Chronic (7) Type 2 diabetes mellitus Current Visit: No Status: Chronic (8) Atrial fib/flutter, transient Current Visit: Yes Status: Acute (9) DVT prophylaxis Current Visit: No Status: Acute - Time Spent with Patient Total time spent is greater than 50% in coordination of care (as documented) at patient's floor/unit and/or counseling patient: Internal Medicine: Result - Labs CBC & Chem 7: 04/15/18 11:03 04/15/18 10:13 Labs: Short CBC 04/15/18 Range/Units 11:03 WBC 8.3 (4.3-11.1) K/mcL Hgb 8.3 L (12.9-16.9) g/dL Hct 25.5 L (37.5-50.1) % Plt Count 146 (140-400) K/mcL Neutrophils # 6.6 (1.6-8.9) K/mcL BMP 04/13/18 04/15/18 14:00 10:13 Sodium 138 137 Potassium 3.2 L 3.5 Chloride 97 L 101 Carbon Dioxide 31 H 26 BUN 81 H 72 H Creatinine 2.44 H 2.34 H Glucose 103 92 Calcium 8.3 L 7.9 L - ABG Interpretation ABG results: PT/INR, D-dimer PT 20.5 Seconds (9.4-12.1) H 04/14/18 10:00 - Attending Attestation I have examined this patient [id number] and my medical decision-making was reviewed with the Resident Physician. I agree with the documented findings, disposition and treatment plan as described except to the extent set forth below. 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 transplanted heart: [place] heart Associated angina: without angina Qualified Code(s): I25.810 - Atherosclerosis of coronary artery bypass graft(s) without angina pectoris (6) Hypertension Qualifiers: Hypertension type: essential hypertension Qualified Code(s): I10 - Essential (primary) hypertension (7) Chronic kidney disease Qualifiers: Chronic kidney disease stage: stage 3 (moderate) Qualified Code(s): N18.3 - Chronic kidney disease, stage 3 (moderate) <Robyn Sauceda - Last Filed: 04/15/18 17:22> (3) Hypertension Qualifiers: Hypertension type: essential hypertension Qualified Code(s): I10 - Essential (primary) hypertension (4) Chronic kidney disease Qualifiers: Chronic kidney disease stage: stage 3 (moderate) Qualified Code(s): N18.3 - Chronic kidney disease, stage 3 (moderate) (5) CAD (coronary artery disease) Qualifiers: Coronary Disease-Associated Artery/Lesion type: bypass graft [place] vs. 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
[2018-04-15] MEDS: 0.9 % Sodium Chloride 1,000 ML IVC SCH (18:05)
[2018-04-16] MEDS ORDERED: Acetaminophen 325 MG TABLET PO ONE (00:06)
[2018-04-16 03:46] LABS: Basophils % 0.4 %; Eosinophils # 0.4 K/mcL (0.0-0.6); Eosinophils % 5.2 %; Hematocrit 24.3 % (37.5-50.1); Hemoglobin 7.8 g/dL (12.9-16.9); Immature Granulocytes % 0.7 % (0-4); Lymphocytes # 0.5 K/mcL (0.6-4.6); Lymphocytes % 7.3 %; Mean Corpuscular HGB Conc 32.1 g/dL (31.6-35.5); Mean Corpuscular Volume 99.6 fL (83.0-100.0); Mean Platelet Volume 11.9 fL (9.4-12.4); Monocytes # 0.7 K/mcL (0.0-1.3); Monocytes % 10.4 %; Neutrophils # 5.3 K/mcL (1.6-8.9); Platelet Count 139 K/mcL (140-400); Red Blood Count 2.44 M/mcL (4.19-5.50); Red Cell Distribution Width 15.9 % (11.5-14.5)
[2018-04-16 04:03] LABS: Calcium 7.9 mg/dL (8.6-10.3); Potassium 3.2 mEq/L (3.5-5.1)
[2018-04-16] MEDS: Pantoprazole 40 MG VIAL IVP SCH ×2 (05:44→17:09)
[2018-04-16] MEDS: Insulin LISPRO 300 UNITS/3 ML VIAL SQ SCH ×4 (08:39→22:10)
[2018-04-16] MEDS: Sucralfate 1 GM TABLET PO SCH ×2 (08:45→21:46)
[2018-04-16] MEDS: Cyanocobalamin (B-12) 1,000 MCG TABLET PO SCH (08:45)
[2018-04-16] MEDS: 0.9 % Sodium Chloride 1,000 ML IVC SCH (08:46)
[2018-04-16] MEDS: ALPRAZolam 1 MG TABLET PO SCH ×2 (08:46→21:45)
[2018-04-16] MEDS: FLUoxetine 20 MG CAPSULE PO SCH (08:46)
--- NOTE | 2018-04-16 09:56 | Internal Med Progress Note ---
Hospitalist Progress Note - Encounter Date of Encounter: 04/16/18 Time of Encounter: 11:20 - Subjective Interval History: No acute events overnight. Abdominal pain improved. Yesterday evening his stool was looking more normal. - Exam Vitals: Temp Pulse Resp BP Pulse Ox 98.1 F 72 18 116/79 96 04/16/18 08:22 04/16/18 08:22 04/16/18 08:22 04/16/18 08:22 04/16/18 08:54 Exam: Gen: Obese, NAD, AAO x3 CVS: RRR Lungs; CTAB Abd: soft, no guarding or rebound, no abdominal tenderness, abdomen is obese Ext: 1+ bipedal pitting edema. - Assessment and Plan (1) Upper GI bleed Current Visit: Yes Status: Acute Assessment and Plan: Patient had 8 week history of dark black stools and hemoglobin of 9.0 in doctor office yesterday and in the ED hemoglobin was 8.7. Hehad EGD in November 2017 showing grade I varicies and mild portal hypertensive gastropathy. Currently patient has symptoms that are chronic, duration of weeks. GI performed EGD and colonoscopy. EGD showed prepyloric GAVE, with APC. Colonoscopy showed 3 mm, nonbleeding polyp in the ascending colon. Despite conservative measure, hemoglobin today trended down to 7.8. Patient with noted history of thrombus in the heart, seen in 2013, and a repeat echocardiogram this year showed no thrombus. Plan Continue Protonix IV BID Close monitoring of vitals. Currently hemodynamically stable. Will need transfusion today as Hgb <8.0 Capsule endoscopy as outpatient. Anticipate patient will need to be placed back on anticoagulation given his history of atrial thrombus. Plan is to hold anticoagulation until he is seen by Cardiology in a few days. (2) Liver cirrhosis secondary to [place] Current Visit: Yes Status: Acute (3) Hypertension Current Visit: Yes Status: Acute Assessment and Plan: Hold metoprolol for now as BP lower/normal (4) Chronic kidney disease Current Visit: Yes Status: Acute Assessment and Plan: Baseline appears 2.0-2.9. Yesterday is 2.34 and today is 2.36, will need recheck tomorrow. Avoid nephrotoxic medications. Lasix currently held. If renal function stable tomorrow, then resume Lasix to avoid fluid overload. (5) CAD (coronary artery disease) Current Visit: No Status: Chronic Assessment and Plan: Continue home medications. Plavix is currently held but given his significant CAD history, will probably need to restart it today or tomorrow. (6) COPD (chronic obstructive pulmonary disease) Current Visit: No Status: Chronic Assessment and Plan: Not in acute exacerbation. (7) Type 2 diabetes mellitus Current Visit: No Status: Chronic Assessment and Plan: Sliding scale insulin Diabetic diet (8) Atrial fib/flutter, transient Current Visit: Yes Status: Acute Assessment and Plan: Eliquis held due to GIIB Metoprolol was held on admission due to lower normal BP but okay to resume now. (9) DVT prophylaxis Current Visit: No Status: Acute Assessment and Plan: EPCD - Time Spent with Patient Total time spent is greater than 50% in coordination of care (as documented) at patient's floor/unit and/or counseling patient: Internal Medicine: Result - Labs CBC & Chem 7: 04/16/18 03:17 04/16/18 03:17 Labs: Short CBC 04/15/18 04/16/18 Range/Units 11:03 03:17 WBC 8.3 7.0 (4.3-11.1) K/mcL Hgb 8.3 L 7.8 L (12.9-16.9) g/dL Hct 25.5 L 24.3 L (37.5-50.1) % Plt Count 146 139 L (140-400) K/mcL Neutrophils # 6.6 5.3 (1.6-8.9) K/mcL BMP 04/15/18 04/16/18 10:13 03:17 Sodium 137 138 Potassium 3.5 3.2 L Chloride 101 101 Carbon Dioxide 26 28 BUN 72 H 72 H Creatinine 2.34 H 2.61 H Glucose 92 139 H Calcium 7.9 L 7.9 L - ABG Interpretation ABG results: PT/INR, D-dimer PT 20.5 Seconds (9.4-12.1) H 04/14/18 10:00 Consult Discharge Plan - Plan Referrals: Cameron Sparrow MD [Primary Care Provider] - (3) Hypertension Qualifiers: Hypertension type: essential hypertension Qualified Code(s): I10 - Essential (primary) hypertension (4) Chronic kidney disease Qualifiers: Chronic kidney disease stage: stage 3 (moderate) Qualified Code(s): N18.3 - Chronic kidney disease, stage 3 (moderate) (5) CAD (coronary artery disease) Qualifiers: Coronary Disease-Associated Artery/Lesion type: bypass graft [place] vs. transplanted heart: [place] heart Associated angina: without angina Qualified Code(s): I25.810 - Atherosclerosis of coronary artery bypass graft(s) without angina pectoris (6) COPD (chronic obstructive pulmonary disease) Qualifiers: COPD type: unspecified COPD Qualified Code(s): J44.9 - Chronic obstructive pulmonary disease, unspecified (7) Type 2 diabetes mellitus Qualifiers: Diabetes mellitus residential insulin use: with residential use Diabetes mellitus complication status: with hyperglycemia Qualified Code(s): E11.65 - Type 2 diabetes mellitus with hyperglycemia; Z79.4 - skilled nursing (current) use of insulin
[2018-04-16] MEDS ORDERED: 0.9 % Sodium Chloride 250 ML ONE (11:18)
[2018-04-17 03:31] LABS: Basophils % 0.5 %; Eosinophils # 0.5 K/mcL (0.0-0.6); Eosinophils % 5.9 %; Hematocrit 29.3 % (37.5-50.1); Immature Granulocytes % 0.7 % (0-4); Lymphocytes # 0.6 K/mcL (0.6-4.6); Lymphocytes % 7.2 %; Mean Corpuscular HGB Conc 32.4 g/dL (31.6-35.5); Mean Corpuscular Hemoglobin 31.6 pg (28.0-33.3); Mean Corpuscular Volume 97.3 fL (83.0-100.0); Mean Platelet Volume 12.2 fL (9.4-12.4); Monocytes # 0.9 K/mcL (0.0-1.3); Monocytes % 10.3 %; Neutrophils # 6.7 K/mcL (1.6-8.9); Platelet Count 174 K/mcL (140-400); Red Blood Count 3.01 M/mcL (4.19-5.50); Segmented Neutrophils % 75.4 %
[2018-04-17 03:44] LABS: Calcium 7.8 mg/dL (8.6-10.3); Potassium 3.3 mEq/L (3.5-5.1)
[2018-04-17 03:46] LABS: Hemoglobin 9.5 g/dL (12.9-16.9)
[2018-04-17] MEDS: 0.9 % Sodium Chloride 1,000 ML IVC SCH (05:57)
[2018-04-17] MEDS: Pantoprazole 40 MG VIAL IVP SCH ×2 (05:58→16:48)
[2018-04-17] MEDS: Sucralfate 1 GM TABLET PO SCH ×2 (08:23→21:40)
[2018-04-17] MEDS: Insulin LISPRO 300 UNITS/3 ML VIAL SQ SCH ×4 (08:23→21:40)
[2018-04-17] MEDS: FLUoxetine 20 MG CAPSULE PO SCH (08:23)
[2018-04-17] MEDS: Cyanocobalamin (B-12) 1,000 MCG TABLET PO SCH (08:24)
[2018-04-17] MEDS: ALPRAZolam 1 MG TABLET PO SCH ×2 (08:24→21:40)
--- NOTE | 2018-04-17 15:06 | Internal Med Progress Note ---
Hospitalist Progress Note - Encounter Date of Encounter: 04/17/18 Time of Encounter: 11:45 - Subjective Interval History: Patient states he is feeling weak. He also noted that today he had another episode of very black tarry stools that has returned. He denies chest pain. He has baseline shortness of breath. - Exam Vitals: Temp Pulse Resp BP Pulse Ox 98.0 F 61 18 91/54 93 04/17/18 11:32 04/17/18 11:32 04/17/18 11:32 04/17/18 11:32 04/17/18 11:32 Exam: Gen: Obese, NAD, AAO x3 CVS: RRR Lungs; CTAB Abd: soft, no guarding or rebound, no abdominal tenderness, abdomen is obese Ext: 1+ bipedal pitting edema. - Assessment and Plan (1) Upper GI bleed Current Visit: Yes Status: Acute Assessment and Plan: Patient had 8 week history of dark black stools and hemoglobin of 9.0 in doctor office yesterday and in the ED hemoglobin was 8.7. Hehad EGD in November 2017 showing grade I varicies and mild portal hypertensive gastropathy. Currently patient has symptoms that are chronic, duration of weeks. GI performed EGD and colonoscopy. EGD showed prepyloric GAVE, with APC. Colonoscopy showed 3 mm, nonbleeding polyp in the ascending colon. Despite conservative measure, hemoglobin today trended down to 7.8. Patient with noted history of thrombus in the heart, seen in 2013, and a repeat echocardiogram this year showed no thrombus. Plan Continue Protonix Close monitoring of vitals. Currently hemodynamically stable. Will need transfusion today as Hgb <8.0 Capsule endoscopy as outpatient. Anticipate patient will need to be placed back on anticoagulation given his history of atrial thrombus. He is high risk for cardiovascular events and will need antiplatelet therapy as well. Patient reports significant black tarry stool returned today. Only Plavix was given today and aspirin was held Plan is to hold anticoagulation until he is seen by Cardiology in a few days. H&H improved to 9.5 today, but with new onset of black tarry stools with Plavix, will need to monitor for improvement. Plan: DC Plavix, and restart aspirin tomorrow. If stool resolves and HH remains stable, will discharge tomorrow AM. (2) Liver cirrhosis secondary to [place] Current Visit: Yes Status: Acute (3) Hypertension Current Visit: Yes Status: Acute (4) Chronic kidney disease Current Visit: Yes Status: Acute Assessment and Plan: Baseline appears 2.0-2.9. (5) CAD (coronary artery disease) Current Visit: No Status: Chronic Assessment and Plan: Continue home medications. Plavix is currently held but given his significant CAD history, will probably need to restart it today or tomorrow. (6) COPD (chronic obstructive pulmonary disease) Current Visit: No Status: Chronic Assessment and Plan: Not in acute exacerbation. (7) Type 2 diabetes mellitus Current Visit: No Status: Chronic Assessment and Plan: Sliding scale insulin Diabetic diet (8) Atrial fib/flutter, transient Current Visit: Yes Status: Acute Assessment and Plan: Eliquis held due to GIIB Metoprolol was held on admission due to lower normal BP but resumed now (9) DVT prophylaxis Current Visit: No Status: Acute Assessment and Plan: EPCD - Time Spent with Patient Total time spent is greater than 50% in coordination of care (as documented) at patient's floor/unit and/or counseling patient: Internal Medicine: Result - Labs CBC & Chem 7: 04/17/18 02:37 04/17/18 02:37 Labs: Short CBC 04/17/18 Range/Units 02:37 WBC 8.9 (4.3-11.1) K/mcL Hgb 9.5 L D (12.9-16.9) g/dL Hct 29.3 L (37.5-50.1) % Plt Count 174 (140-400) K/mcL Neutrophils # 6.7 (1.6-8.9) K/mcL BMP 04/17/18 02:37 Sodium 133 L Potassium 3.3 L Chloride 97 L Carbon Dioxide 28 BUN 79 H Creatinine 2.56 H Glucose 166 H Calcium 7.8 L - ABG Interpretation ABG results: PT/INR, D-dimer PT 20.5 Seconds (9.4-12.1) H 04/14/18 10:00 Consult Discharge Plan - Plan Referrals: Cameron Sparrow MD [Primary Care Provider] - (Unable to make follow up appointment due to office being closed on weekend. Please call wednesday to schedule follow up appointment for 5-7 days from date of discharge. ) (3) Hypertension Qualifiers: Hypertension type: essential hypertension Qualified Code(s): I10 - Essential (primary) hypertension (4) Chronic kidney disease Qualifiers: Chronic kidney disease stage: stage 3 (moderate) Qualified Code(s): N18.3 - Chronic kidney disease, stage 3 (moderate) (5) CAD (coronary artery disease) Qualifiers: Coronary Disease-Associated Artery/Lesion type: bypass graft [place] vs. transplanted heart: [place] heart Associated angina: without angina Qualified Code(s): I25.810 - Atherosclerosis of coronary artery bypass graft(s) without angina pectoris (6) COPD (chronic obstructive pulmonary disease) Qualifiers: COPD type: unspecified COPD Qualified Code(s): J44.9 - Chronic obstructive pulmonary disease, unspecified (7) Type 2 diabetes mellitus Qualifiers: Diabetes mellitus custodial insulin use: with custodial use Diabetes mellitus complication status: with hyperglycemia Qualified Code(s): E11.65 - Type 2 diabetes mellitus with hyperglycemia; Z79.4 - termite control service representative (current) use of insulin
[2018-04-17] MEDS ORDERED: *HR* LORazepam 0.5 MG TABLET PO PRN (17:43)
[2018-04-18] MEDS: 0.9 % Sodium Chloride 1,000 ML IVC SCH (05:44)
[2018-04-18] MEDS: Pantoprazole 40 MG VIAL IVP SCH (05:46)
[2018-04-18 06:13] LABS: Basophils # 0.1 K/mcL (0.0-0.2); Basophils % 0.5 %; Eosinophils # 0.6 K/mcL (0.0-0.6); Eosinophils % 5.9 %; Hematocrit 28.9 % (37.5-50.1); Hemoglobin 9.6 g/dL (12.9-16.9); Immature Granulocytes % 0.7 % (0-4); Lymphocytes # 0.7 K/mcL (0.6-4.6); Lymphocytes % 7.3 %; Mean Corpuscular HGB Conc 33.2 g/dL (31.6-35.5); Mean Corpuscular Volume 96.3 fL (83.0-100.0); Mean Platelet Volume 11.5 fL (9.4-12.4); Monocytes # 1.1 K/mcL (0.0-1.3); Monocytes % 10.6 %; Neutrophils # 7.6 K/mcL (1.6-8.9); Platelet Count 188 K/mcL (140-400); Red Cell Distribution Width 16.6 % (11.5-14.5)
[2018-04-18 06:36] LABS: Albumin 2.7 g/dL (3.5-5.7); Bilirubin,Total 1.6 mg/dL (0.3-1.0); Globulin 2.7 g/dL (2.4-3.5); Potassium 3.4 mEq/L (3.5-5.1); Total Protein 5.4 g/dL (6.4-8.9)
[2018-04-18] MEDS: FLUoxetine 20 MG CAPSULE PO SCH (08:43)
[2018-04-18] MEDS: ALPRAZolam 1 MG TABLET PO SCH (08:43)
[2018-04-18] MEDS: Sucralfate 1 GM TABLET PO SCH (08:43)
[2018-04-18] MEDS: Cyanocobalamin (B-12) 1,000 MCG TABLET PO SCH (08:43)
[2018-04-18] MEDS: Insulin LISPRO 300 UNITS/3 ML VIAL SQ SCH ×2 (08:44→12:28)
--- NOTE | 2018-04-18 11:51 | Discharge Summary ---
- NOTES TO OUTPATIENT PROVIDER Notes to Outpatient Provider: Please follow up with PCP in one week. Please follow up with GI Dr. Son in 1 week.. You do need out pt endocapsular study for your occult GI bleed. Please follow-up with cardiology Dr. Bhagat in 2-4 weeks. Please continue taking Plavix and Eliquis, if you start noticing melena, bright red blood per rectum stop taking those medications and see your PCP GRETCHEN. Orders not resulted at time of discharge: Pending orders 04/13/18 14:00 Type and Screen [BBK] Stat 04/16/18 08:25 Red Blood Cells [BBK] Stat 04/18/18 12:00 H/H [Hemoglobin and Hematocrit] [HEME] Q6H 04/18/18 18:00 H/H [Hemoglobin and Hematocrit] [HEME] Q6H 04/19/18 04:00 CBC [Complete Blood Count] [HEME] AM 0400 CMP [Comprehensive Metabolic Panel] AM 0400 04/20/18 04:00 CBC [Complete Blood Count] [HEME] AM 0400 CMP [Comprehensive Metabolic Panel] AM 0400 Date of Encounter: 04/18/18 Time of Encounter: 11:48 - Discharge Diagnosis (1) Acute blood loss anemia Priority: Primary Status: Acute (2) Upper GI bleed Priority: Primary Status: Acute (3) COPD (chronic obstructive pulmonary disease) Priority: Primary Status: Chronic Qualifiers: COPD type: unspecified COPD Qualified Code(s): J44.9 - Chronic obstructive pulmonary disease, unspecified (4) Type 2 diabetes mellitus Priority: Secondary Status: Chronic Qualifiers: Diabetes mellitus long term care pharmacist insulin use: with long term care pharmacist use Diabetes mellitus complication status: with hyperglycemia Qualified Code(s): E11.65 - Type 2 diabetes mellitus with hyperglycemia; Z79.4 - terminal make up operator (current) use of insulin (5) CAD (coronary artery disease) Priority: Secondary Status: Chronic Qualifiers: Coronary Disease-Associated Artery/Lesion type: bypass graft [place] vs. transplanted heart: [place] heart Associated angina: without angina Qualified Code(s): I25.810 - Atherosclerosis of coronary artery bypass graft(s) without angina pectoris (6) DVT prophylaxis Priority: Secondary Status: Acute (7) Liver cirrhosis secondary to [place] Priority: Secondary Status: Acute (8) Hypertension Priority: Secondary Status: Acute Qualifiers: Hypertension type: essential hypertension Qualified Code(s): I10 - Essential (primary) hypertension (9) Chronic kidney disease Priority: Secondary Status: Acute Qualifiers: Chronic kidney disease stage: stage 3 (moderate) Qualified Code(s): N18.3 - Chronic kidney disease, stage 3 (moderate) (10) Atrial fib/flutter, transient Priority: Secondary Status: Acute Hospital course: Mr. Bell is a 60 year old male with past medical history of severe mitral regurgitation, liver cirrhosis, possible diastolic CHF, CVA, COPD, CAD, IDDM 2, hypertension, [place] status post CABG and stent placement 6, atrial fibrillation/ atrial flutter on Xarelto pt presented to ED per recommendation of his doctor's office. Patient has been having 8 weeks of dark coal-looking stools, but now having epigastric abdominal pain that is progressively worsening. Patient was admitted in the hospital for acute blood loss anemia due to mostly upper G.I. bleed. His HB dropped down to 7.8 which improved with 2 U PRBC. Now his Hb stayed stable around @ 9.6. We did held his Plavix and Eliquis. He was evaluated by cash on delivery clerk who did colonoscopy showed 3 mm nonbreeding polyp in sending colon. Hs EGD showed normal esophagus and gastric antral vascular ectasia which treated with plasma coagulation. We resumed his Plavix yesterday, which he tolerated well and patient does not have any more dark colored stools. So I resumed his eliquis today. General Manager [employer] did recommend an outpatient endocapsular study for this patient / - Time Spent with Patient Total time spent providing and/or coordinating discharge services: - Discharge Medications Prescriptions: Sucralfate [Carafate] 1 g PO TID #90 tablet Home Medications: ALPRAZolam [Xanax 1 MG Tablet] 1 mg PO BID 08/04/15 [History] Atorvastatin [Lipitor] 40 mg PO HS 08/04/15 [History] Clopidogrel [Plavix] 75 mg PO DAILY 08/04/15 [History] FLUoxetine HCl [Prozac] 20 mg PO DAILY 08/04/15 [History] Furosemide [Lasix] 40 mg PO BID 08/04/15 [History] Allopurinol [Zyloprim 100 MG] 100 mg PO BID 04/13/18 [History] Apixaban [Eliquis] 5 mg PO BID 04/13/18 [History] Cyanocobalamin (Vitamin B-12) [Vitamin B12] 1,000 mcg PO DAILY 04/13/18 [History] Ergocalciferol (VITAMIN D2) [Vitamin D2] 50,000 unit PO FR 04/13/18 [History] Ferrous Sulfate 325 mg PO BID 04/13/18 [History] Insulin Degludec [Tresiba Flextouch U-200] 25 unit SQ HS 04/13/18 [History] Metoprolol Tartrate [Lopressor] 25 mg PO BID 04/13/18 [History] Nitroglycerin [Nitrostat] 0.4 mg PO AD 04/13/18 [History] Potassium Chloride 10 meq PO DAILY 04/13/18 [History] Tamsulosin [Flomax] 0.4 mg PO DAILY 04/13/18 [History] metOLazone [Zaroxolyn] 2.5 mg PO MOWEFR 04/13/18 [History] Esomeprazole Magnesium [Nexium] 20 mg PO BID #0 04/18/18 [Rx] Sucralfate [Carafate] 1 g PO TID #90 tablet 04/18/18 [Rx] Allergies/Adverse Reactions: Allergy/AdvReac Type Severity Reaction Status Date / Time promethazine [From Phenergan] Allergy Itching Verified 04/13/18 21:34 Date of admission: 04/17/18 17:34 Primary care physician: Cameron Sparrow MD Consults: 04/13/18 18:14 Consult to Gastroenterology [CONS] Routine Consulting Provider: [facility] Reason for Consult: Upper GI bleed Call Completed: No - Constitutional Vitals: Temp Pulse Resp BP Pulse Ox 97.9 F 59 18 105/63 94 04/18/18 06:56 04/18/18 06:56 04/18/18 06:56 04/18/18 08:42 04/18/18 06:56 General appearance: Present: A&O X 3 Exam: Gen: Alert, awake, Oriented to time,place and person Chest: Diminished breath sounds B/L, No wheezing, No crackles, No rales Heart: S1S2+ RRR No murmurs Abd: Soft, NT, BS +, No organomegaly Ext: No edema, pulses are palpable, No calf tenderness Neuro : Benign findings Skin: No rash. - Patient Status Disposition: Home, Self-Care Condition: Good Overall status at discharge: patient is back to baseline - Discharge Instructions Follow Up With: Cameron Sparrow MD [Primary Care Provider] - (Unable to make follow up appointment due to office being closed on weekend. Please call wednesday to schedule follow up appointment for 5-7 days from date of discharge. ) Morales Bhagat, [Partnered Physician] - Sheela Son MD [Partnered Physician] - - Diet and Activity Activity: increase activity as tolerated Diet: low salt diet
[2018-04-18 11:55] VITALS: BP 107/62
== END 2018-04-18 12:50 | disposition home or self-care (01) | DRG 378 ==
LOC: EMEROOARM 13:30 → 3BNU 13:30 → SUATTDRO 19:55 → 3BNU 20:25 → SUATTDRO 04-17 17:34
PROVIDERS: ADMIT Pediatrics; ATTEND Family Medicine